=== PATIENT | female | born 1970 | race Caucasian/White ===

== ENCOUNTER 2019-08-23 11:09 | Emergency (ER) | payer BC, SELFPAY ==
[2019-08-23 11:20] VITALS: BP 165/78; PULSE 90; RESP 65; TEMP 37; O2SAT 99
--- NOTE | 2019-08-23 11:44 | ED_ITS ---
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 She states that she was exposed to a note chemicals when she had somebody yesterday and had immediate breaks out of a rash across her neck. He was initially itchy, then she broke out a rash over her face. She has been using Benadryl at home with no relief as well as topical Benadryl. Last doses 38 mg p.o. at 7:00 a.m. this morning. She states she started feeling short of breath on the way to the emergency department today. She denies any swelling of her lips face or tongue. She denies any wheezing. She denies any previous unknown exposures to new cleaning substances, self-care products, etcetera. She states that the rash started immediately after she was hugged by somebody at work and thinks that it may have been a perfume or another substance. Related Data Home Medications Medication Instructions Recorded Confirmed nortriptyline #0 04/19/16 omeprazole #0 04/19/16 rizatriptan [Maxalt-ADJUNCT FACULTY FOR MEDICAL TERMINOLOGY] #0 04/19/16 Previous Rx's Medication Instructions Recorded prednisone 10 mg PO DAILY #4 tab 08/23/19 Allergies Allergy/AdvReac Type Severity Reaction Status Date / Time No Known Drug Allergies Allergy Verified 08/23/19 11:50 Review of Systems <JAMAL Zendejas-BC - Last Filed: 08/23/19 15:37> Review of Systems Narrative: GENERAL: Denies chills, fatigue, malaise, fever, sweats. HEENT: Denies sinus pain, ear pain, sore throat, difficulty swallowing, dizziness. RESPIRATORY: See HPI CARDIOVASCULAR: Denies chest pain, palpitations, orthopnea, edema, GASTROINTESTINAL: Denies nausea, vomiting, abdominal pain, diarrhea, constipation, melena. : Denies dysuria, frequency, incontinence, hematuria, urinary retention. MUSCULOSKELETAL: denies weakness, joint pain, or bony pain SKIN: See HPI NEUROLOGIC: Denies weakness, headache, numbness, change in speech, confusion, seizures, incoordination. PSYCHIATRIC: No concerning psychosocial issues. 12 point review of systems is negative except for those stated above Patient History <Kendal PopJAMAL- - Last Filed: 08/23/19 15:37> Social History Smoking Status: Never smoker Smoking Status: Never smoker Substance Use Type: does not use Exam <Kendal PopCASS - Last Filed: 08/23/19 15:37> Narrative Exam Narrative: GENERAL: This is a well-nourished, well-developed patient, in no acute distress HEAD: Atraumatic. Normocephalic. No temporal or scalp tenderness. EYES: Pupils equal round and reactive. Extraocular motions intact. No scleral icterus. No injection or drainage. ENT: Nose without bleeding, purulent drainage or septal hematoma. Throat without erythema, tonsillar hypertrophy or exudate. Uvula midline. Airway patent. No swelling of the lips face or tongue noted. NECK: Trachea midline. No JVD or lymphadenopathy. Supple, nontender, no meningeal signs. CARDIOVASCULAR: Regular rate and rhythm RESPIRATORY: Clear to auscultation. Breath sounds equal bilaterally. No wheezes, rales, or rhonchi. No cough. No increased respiratory effort. No accessory muscle use. GASTROINTESTINAL: Abdomen soft, non-tender, nondistended. No hepato- splenomegaly, or palpable masses. No guarding. EXTREMITIES: No clubbing, cyanosis, or edema. No joint tenderness, effusion, or edema noted. BACK: Nontender without deformity or crepitance. No flank tenderness. NEURO: AOx3. SKIN: Patchy erythematous rash noted over face, he took area noted over neck. Extends down shoulders. No rash noted bilateral lower legs. Initial Vital Signs Initial Vital Signs: Vital Signs Temperature 98.6 F 08/23/19 11:20 Pulse Rate 90 08/23/19 11:20 Respiratory Rate 65 H 08/23/19 11:20 Blood Pressure 165/78 H 08/23/19 11:20 Pulse Oximetry 99 08/23/19 11:20 <Anna Alston MD - Last Filed: 08/24/19 07:42> Initial Vital Signs Initial Vital Signs: Vital Signs Temperature 98.6 F 08/23/19 11:20 Pulse Rate 90 08/23/19 11:20 Respiratory Rate 65 H 08/23/19 11:20 Blood Pressure 165/78 H 08/23/19 11:20 Pulse Oximetry 99 08/23/19 11:20 Course <RUPAL ZendejasP-BC - Last Filed: 08/23/19 15:37> Orders Ordered: Discontinued Medications Diphenhydramine HCl (Benadryl) 25 mg IV NOW ONE Stop: 08/23/19 11:49 Last Admin: 08/23/19 12:01 Dose: 25 mg Documented by: TATYANA Diphenhydramine HCl (Benadryl) 25 mg IV NOW ONE Stop: 08/23/19 13:03 Last Admin: 08/23/19 14:33 Dose: Not Given Documented by: TATYANA Famotidine (Pepcid) 20 mg in 50 mls @ 200 mls/hr IV NOW ONE Stop: 08/23/19 12:02 Last Infusion: 08/23/19 12:46 Dose: 0 mls/hr Documented by: Admin: 08/23/19 12:02 Dose: 200 mls/hr Documented by: TATYANA Prednisone (Deltasone) 10 mg PO NOW ONE Stop: 08/23/19 13:03 Last Admin: 08/23/19 13:46 Dose: 10 mg Documented by: NAOMI Vital Signs Vital signs: Vital Signs - 8 hr 08/23/19 11:20 08/23/19 12:22 08/23/19 12:30 Temperature 98.6 F Pulse Rate 90 65 62 Respiratory Rate 65 H 16 16 Blood Pressure 165/78 H Blood Pressure [Right Arm] 148/69 H 162/76 H Pulse Oximetry 99 99 100 08/23/19 13:00 08/23/19 13:30 08/23/19 14:00 Temperature Pulse Rate 58 L 62 57 L Respiratory Rate 16 16 18 Blood Pressure Blood Pressure [Right Arm] 144/65 H 144/68 H 134/74 Pulse Oximetry 100 100 100 <Anna Alston MD - Last Filed: 08/24/19 07:42> Orders Ordered: Discontinued Medications Diphenhydramine HCl (Benadryl) 25 mg IV NOW ONE Stop: 08/23/19 11:49 Last Admin: 08/23/19 12:01 Dose: 25 mg Documented by: TATYANA Diphenhydramine HCl (Benadryl) 25 mg IV NOW ONE Stop: 08/23/19 13:03 Last Admin: 08/23/19 14:33 Dose: Not Given Documented by: TATYANA Famotidine (Pepcid) 20 mg in 50 mls @ 200 mls/hr IV NOW ONE Stop: 08/23/19 12:02 Last Infusion: 08/23/19 12:46 Dose: 0 mls/hr Documented by: Admin: 08/23/19 12:02 Dose: 200 mls/hr Documented by: TAYTANA Prednisone (Deltasone) 10 mg PO NOW ONE Stop: 08/23/19 13:03 Last Admin: 08/23/19 13:46 Dose: 10 mg Documented by: NAOMI Vital Signs Vital signs: Vital Signs - 8 hr 08/23/19 11:20 08/23/19 12:22 08/23/19 12:30 Temperature 98.6 F Pulse Rate 90 65 62 Respiratory Rate 65 H 16 16 Blood Pressure 165/78 H Blood Pressure [Right Arm] 148/69 H 162/76 H Pulse Oximetry 99 99 100 08/23/19 13:00 08/23/19 13:30 08/23/19 14:00 Temperature Pulse Rate 58 L 62 57 L Respiratory Rate 16 16 18 Blood Pressure Blood Pressure [Right Arm] 144/65 H 144/68 H 134/74 Pulse Oximetry 100 100 100 MDM - Allergic Reaction <RUPAL ZendejasP-BC - Last Filed: 08/23/19 15:37> MDM Narrative Medical decision making narrative: The patient is a 48-year-old female who presents with a chief complaint rash that started yesterday. She states it started as fingerprints from when she put her fingers on a chemical covered bench then on her neck. She is hemodynamically stable, no swelling of her lips face tongue or oropharynx. She was given Pepcid and Benadryl in the emergency department. She initially declined to prednisone as she does not like to do steroids, but later relinquished to a small dose. I discussed at length continued Pepcid daily, Benadryl as needed every 6 hours, small dose of prednisone. Discussed at length monitoring for worsening, coming back to the emergency department for any acute concerns such as difficulty breathing and following up with primary care provider. Patient has no questions or concerns upon discharge and states understanding of return precautions as well as follow- up care. Discharge Plan Departure Patient Disposition: Home Clinical Impression: Allergic reaction Qualifiers: Encounter type: initial encounter Qualified Code(s): T78.40XA - Allergy, unspecified, initial encounter Discharge Date/Time: 08/23/19 14:38 Instructions: DI for General Allergic Reactions Activity Restrictions/Additional Instructions: Thank you for trusting us with your care today I sent a small prescription of prednisone to [facility] in [place] You can also take Benadryl 50 mg by mouth every 6-8 hours. You can take Pepcid once a day in the morning or at night. This is also known as famotidine and is available [id number] Please follow-up with primary care provider next few days. Please come back to the emergency department for any acute concerns Prescriptions: New prednisone 10 mg tablet 10 mg PO DAILY Qty: 4 RF: 0 No Action nortriptyline 10 MG capsule Qty: 0 RF: 0 omeprazole 20 MG capsule,delayed release(DR/EC) Qty: 0 RF: 0 rizatriptan [Maxalt-ADJUNCT FACULTY FOR MEDICAL TERMINOLOGY] 5 MG tablet,disintegrating Qty: 0 RF: 0 Referrals: Erika Marks PA-C [Primary Care Provider] - Stand Alone Forms: Work Release Note
[2019-08-23] MEDS: diphenhydrAMINE 50 MG/ML VIAL 25 MG IV (12:01)
[2019-08-23] MEDS: FAMOTIDINE 20 MG/50 ML PIGGYBACK 200 MG IV (12:02)
[2019-08-23 12:22] VITALS: BP 148/69; PULSE 65; RESP 16; O2SAT 99
--- NOTE | 2019-08-23 12:22 | PC.NURSE ---
onset of rash last night at 2200, woke worsen, facial redness,swelling,rash, burning sensation, airway patent. breath sound clear, rash face,neck,chest, fine raised rash back, no rash lower legs, biteral arms with raised rash.
[2019-08-23 12:30] VITALS: BP 162/76; PULSE 62; RESP 16; O2SAT 100
[2019-08-23 13:00] VITALS: BP 144/65; PULSE 58; RESP 16; O2SAT 100
[2019-08-23 13:30] VITALS: BP 144/68; PULSE 62; RESP 16; O2SAT 100
[2019-08-23] MEDS: predniSONE 20 MG TABLET 10 MG PO (13:46)
[2019-08-23 14:00] VITALS: BP 134/74; PULSE 57; RESP 18; O2SAT 100
== END 2019-08-23 14:38 | disposition home or self-care (01) ==
PROVIDERS: Emergency Provider Nurse Practitioner Family; PCP Physician Assistant
DX: T78.40XA Allergy, unspecified, initial encounter (principal)
CPT/HCPCS: 96365; 96375; 99284; J1200

== ENCOUNTER 2020-12-03 18:04 | Emergency (ER) | payer OTHER, SELFPAY ==
[2020-12-03 18:08] VITALS: BP 169/86; PULSE 83; RESP 18; TEMP 36.6; O2SAT 99
--- NOTE | 2020-12-03 18:17 | ED.HA ---
HPI - Headache General Chief Complaint: Headache Stated Complaint: Migraine, Vomiting Time Seen by Provider: 12/03/20 18:05 Source: patient Mode of arrival: Wheelchair Limitations: no limitations History of Present Illness HPI Narrative: 50F former smoker with a longstanding history of migraine headaches presents under rather similar circumstances. She states that she awoke this morning about 5:00 a.m. and had a generalized squeezing, vicelike headache that is worse with motion, bright lights and loud noises. Additionally, she states that though there is always a baseline squeezing pain there are episodes of waxing and waning pain that is without any obvious provocation or palliation. She has had vomiting for much of the day which is classic for her. She denies any neck pain nor fever or chills. She has had no recent trauma or injuries. She denies any chest pain or shortness of breath. She denies any change in medications, dietary change or anything else. She denies any focal neurologic findings such as numbness, tingling or weakness. MD Complaint: headache and migraine Onset (ago): hour(s) Onset description: at rest Location: diffuse Severity: moderate Quality: aching and throbbing Relieving factors: dark room Exacerbating factors: light and noise Context: occurred at rest Associated symptoms: nausea and vomiting Treatments prior to arrival: migraine medication Related Data Home Medications Medication Instructions Recorded Confirmed nortriptyline #0 04/19/16 omeprazole #0 04/19/16 rizatriptan [Maxalt-ROTARY SWAGING MACHINE OPERATOR] #0 04/19/16 Allergies Allergy/AdvReac Type Severity Reaction Status Date / Time No Known Drug Allergies Allergy Verified 12/03/20 18:10 Review of Systems Constitutional Constitutional: Denies chills, Denies fatigue, Denies fever(s), Denies frequent falls, Reports headache(s), Denies lethargy and Denies weakness Eyes Eyes: Denies change in vision, Denies eye discharge, Denies irritation and Denies loss of vision ENT Ears, Nose, Mouth, and Throat: Denies change in voice, Denies dizziness, Reports headache(s), Denies neck pain, Denies sore throat and Denies throat swelling Cardiovascular Cardiovascular: Denies chest pain, Denies irregular heart rhythm, Denies lightheadedness, Denies palpitations, Denies dyspnea, Denies dyspnea on exertion and Denies orthopnea Respiratory Respiratory: Denies cough, Denies dyspnea, Denies dyspnea on exertion and Denies wheezing Gastrointestinal Gastrointestinal: Denies abdominal pain, Denies change in bowel habits, Denies diarrhea, Denies nausea and Denies vomiting Musculoskeletal Musculoskeletal: Denies neck pain and Denies numbness Integumentary/Breasts Skin/Breast: Denies pruritus, Denies erythema, Denies rash and Denies wounds Neurologic Neurologic: Denies behavioral changes, Denies confusion, Denies dizziness, Denies frequent falls, Reports headache(s), Denies loss of vision, Denies numbness and Denies weakness Psychiatric Psychiatric: Denies anxiety, Denies behavioral changes, Denies confusion, Denies depression, Denies homicidal ideation and Denies suicidal ideation Endocrine Endocrine: Denies fatigue, Denies flushing and Denies palpitations Hematologic/Lymphatic Hematologic/Lymphatic: Denies easy bruising Allergic/Immunologic Allergic/Immunologic: Denies urticaria, Denies throat swelling and Denies wheezing Patient History Social History Smoking Status: Former smoker Smoking Status: Former smoker alcohol intake frequency: 0-2 drinks per day Substance Use Type: does not use Exam Narrative Exam Narrative: GENERAL: [50] year old patient appears stated age. Well-developed patient, in mild distress. Sitting in a dark room, rubbing her temples. HEAD: Atraumatic. Normocephalic. EYES: Pupils equal round and reactive. Extraocular motions intact. No scleral icterus. No injection or drainage. ENT: Nose without bleeding, purulent drainage. Throat without erythema, tonsillar hypertrophy or exudate. Airway patent. NECK: Trachea midline. Non tender CARDIOVASCULAR: Regular rate and rhythm without murmurs, gallops, or rubs. RESPIRATORY: Clear to auscultation. Breath sounds equal bilaterally. No wheezes, rales, or rhonchi. GASTROINTESTINAL: Abdomen soft, non-tender, nondistended. EXTREMITIES: No edema or joint tenderness. BACK: Nontender without deformity or crepitance. No flank tenderness. NEURO: AOx3. SKIN: No rash or erythema of visible areas Initial Vital Signs Initial Vital Signs: Vital Signs Temperature 97.8 F 12/03/20 18:08 Pulse Rate 83 12/03/20 18:08 Respiratory Rate 18 12/03/20 18:08 Blood Pressure 169/86 H 12/03/20 18:08 Pulse Oximetry 99 12/03/20 18:08 Course Orders Ordered: ED Orders 12/03/20 18:20 Complete Blood Count AUTO DIFF Stat Comprehensive Metabolic Panel Stat Discontinued Medications Diphenhydramine HCl (Diphenhydramine 50 Mg/Ml Vial) 25 mg IV NOW ONE Stop: 12/03/20 18:19 Last Admin: 12/03/20 18:23 Dose: 25 mg Documented by: MAXI Sodium Chloride (Normal Saline 0.9%) 1,000 mls @ 1,000 mls/hr IV BOLUS ONE Stop: 12/03/20 19:12 Last Admin: 12/03/20 18:23 Dose: 1,000 mls/hr Documented by: MAXI Ketorolac Tromethamine (Ketorolac 30 Mg/Ml Vial) 15 mg IV NOW ONE Stop: 12/03/20 18:19 Last Admin: 12/03/20 18:23 Dose: 15 mg Documented by: MAXI Metoclopramide HCl (Metoclopramide 10 Mg/2 Ml Inj) 10 mg IV NOW ONE Stop: 12/03/20 18:19 Last Admin: 12/03/20 18:23 Dose: 10 mg Documented by: MAXI Reevaluation(s) Reevaluation #1: Patient has significant improvement in symptoms after above-stated therapies Vital Signs Vital signs: Vital Signs - 8 hr 12/03/20 18:08 12/03/20 19:32 Temperature 97.8 F Pulse Rate 83 78 Respiratory Rate 18 14 Blood Pressure 169/86 H 134/63 Pulse Oximetry 99 99 MDM - Headache Lab Data Result diagrams: 12/03/20 18:20 12/03/20 18:20 Labs: Lab Results 12/03/20 12/03/20 Range/Units 18:20 18:20 WBC 8.5 (4.5-11.0) X10^3/uL RBC 4.84 (4.0-5.2) X10^6/uL Hgb 13.7 (12.0-16.0) g/dL Hct 41.1 (36-46) % MCV 84.8 (80-100) fL MCH 28.2 (26-34) PG MCHC 33.2 (30-36) % RDW 13.3 (11.6-14.8) % Plt Count 316 (150-400) X10^3/uL Neut % (Auto) 87.5 H (50-75) % Lymph % (Auto) 10.3 L (25-40) % [place] % (Auto) 1.9 L (3-14) % Eos % (Auto) 0.0 L (2-4) % Baso % (Auto) 0.3 (0-2) % Neut # (Auto) 7400 H (1764-4191) /uL Lymph # (Auto) 900 L (3442-0906) /uL [place] # (Auto) 200 (0-900) /uL Eos # (Auto) 0 (0-450) /uL Baso # (Auto) 0 (0-100) /uL Sodium 134 L (137-145) mmol/L Potassium 4.0 (3.4-5.1) mmol/L Chloride 102 (98-107) mmol/L Carbon Dioxide 23 (22-32) mmol/L BUN 19 H (7-17) mg/dL Creatinine 0.47 L (0.52-1.04) mg/dL Estimated GFR > 60.0 (>60) mL/min BUN/Creatinine Ratio 40.4 H (6-22) Glucose 137 H (70-100) mg/dL Calcium 10.1 (8.4-10.2) mg/dL Total Bilirubin 0.5 (0.2-1.3) mg/dL AST 26 (14-36) IU/L ALT 35 H (<35) IU/L Alkaline Phosphatase 54 (38-126) U/L Total Protein 7.8 (6.3-8.2) g/dL Albumin 4.8 (3.5-5.0) g/dL Globulin 3.0 (1.7-4.1) g/dL Albumin/Globulin Ratio 1.6 (1.0-2.8) MDM Narrative Medical decision making narrative: Headache considerations include, but not limited to: Subarachnoid hemorrhage, but unlikely as patient denies sudden onset of pain, not worst of life, or neck pain Meningitis considered, but thought unlikely given lack of Brudzinski's, Kernig's sign, altered mental status or fever Giant cell arteritis considered, but thought unlikely given lack of unilateral findings, pain in latter day, vision change HTN Emergency considered, but thought unlikely given normal vitals Other serious diagnoses considered unlikely given lack of red flag findings such as sudden onset, increasing frequency, immunocompromise, systemic signs (fever, chills, stiff neck, or rash), focal neurologic findings, trauma, blood thinners, etc. Discharge Plan Departure Patient Disposition: Home Clinical Impression: Migraine Qualifiers: Migraine type: unspecified Status migrainosus presence: without status migrainosus Intractability: not intractable Qualified Code(s): G43.909 - Migraine, unspecified, not intractable, without status migrainosus Instructions: DI for Migraine Activity Restrictions/Additional Instructions: *You have been diagnosed with [Migraine-type Headache ] *What to do: * continue to take medications as directed *Follow up with your primary care provider in 2-3 days, call for an appointment. Let them know you were seen in the Emergency Department and that we ask that you be seen in follow up *Return to ER if you should have any new, worsening or concerning symptoms, such as [ fever > 101F, neck pain or stiffness, vomiting, confusion, seizure, focal weakness, vision change, speech deficit or other concerning symptoms ] Prescriptions: No Action nortriptyline 10 MG capsule Qty: 0 RF: 0 omeprazole 20 MG capsule,delayed release(DR/EC) Qty: 0 RF: 0 rizatriptan [Maxalt-ROTARY SWAGING MACHINE OPERATOR] 5 MG tablet,disintegrating Qty: 0 RF: 0 Referrals: Erika Marks PA-C [Primary Care Provider] -
[2020-12-03] MEDS: SODIUM CHLORIDE 0.9% 1,000 ML 1000 ML IV (18:23)
[2020-12-03] MEDS: KETOROLAC 30 MG/ML VIAL 15 MG IV (18:23)
[2020-12-03] MEDS: METOCLOPRAMIDE 10 MG/2 ML INJ IV (18:23)
[2020-12-03] MEDS: diphenhydrAMINE 50 MG/ML VIAL 25 MG IV (18:23)
[2020-12-03 18:31] LABS: Add Manual Diff / Slide Review NO; Basophils Absolute Auto 0 /uL (0-100); Basophils Percent Auto 0.3 % (0-2); Eosinophils Absolute Auto 0 /uL (0-450); Hematocrit 41.1 % (36-46); Hemoglobin 13.7 g/dL (12.0-16.0); Lymphocytes Absolute Auto 900 /uL (1100-4500); Lymphocytes Percent Auto 10.3 % (25-40); Mean Corpuscular HGB Conc 33.2 % (30-36); Mean Corpuscular Hemoglobin 28.2 PG (26-34); Mean Corpuscular Volume 84.8 fL (80-100); Monocytes Absolute Auto 200 /uL (0-900); Monocytes Percent Auto 1.9 % (3-14); Neutrophils Absolute Auto 7400 /uL (1500-7000); Neutrophils Percent Auto 87.5 % (50-75); Platelet Count 316 X10^3/uL (150-400); Red Blood Cell Count 4.84 X10^6/uL (4.0-5.2); Red Cell Distribution Width 13.3 % (11.6-14.8); White Blood Cell Count 8.5 X10^3/uL (4.5-11.0)
[2020-12-03 18:47] LABS: Alanine Aminotransferase 35 IU/L (<35); Albumin 4.8 g/dL (3.5-5.0); Albumin Globulin Ratio 1.6 (1.0-2.8); Alkaline Phosphatase 54 U/L (38-126); Aspartate Aminotransferase 26 IU/L (14-36); BUN Creatinine Ratio 40.4 (6-22); Bilirubin Total 0.5 mg/dL (0.2-1.3); Blood Urea Nitrogen 19 mg/dL (7-17); Calcium 10.1 mg/dL (8.4-10.2); Carbon Dioxide 23 mmol/L (22-32); Chloride 102 mmol/L (98-107); Estimated Glomerular Filt Rate > 60.0 mL/min (>60); Glucose 137 mg/dL (70-100); HEMOLYSIS < 15 (0-50); Sodium 134 mmol/L (137-145); Total Protein 7.8 g/dL (6.3-8.2)
[2020-12-03 19:32] VITALS: BP 134/63; PULSE 78; RESP 14; O2SAT 99
== END 2020-12-03 19:52 | disposition home or self-care (01) ==
PROVIDERS: Emergency Provider Emergency Medicine; PCP Physician Assistant
DX: G43.909 Migraine, unspecified, not intractable, without status migrainosus (principal)
CPT/HCPCS: 36415; 80053; 85025; 96361; 96374; 96375; 99284; J1200; J1885; J2765